=== PATIENT | male | born 1990 | race African-American/Black ===

== ENCOUNTER 2018-11-24 19:35 | Emergency (ER) | payer OTHER ==
[2018-11-24] MEDS ORDERED: ACETAMINOPHEN SOLN 325 MG/10.15 ML UDCUP PO ONE (20:16)
[2018-11-24] MEDS ORDERED: DEXAMETHASONE SOD PHOS INJ 10 MG/1 ML VIAL IV ONE (22:26)
[2018-11-24] MEDS ORDERED: KETOROLAC TROMETHAMINE INJ/PF 30 MG/1 ML SDV IV ONE (22:29)
--- NOTE | 2018-11-24 22:29 | ER Document Report ---
ED Medical Screen (RME) - General Chief Complaint: Headache Stated Complaint: HEADACHE Time Seen by Provider: 11/24/18 22:24 Mode of Arrival: Ambulatory Information source: Patient Notes: 28-year-old man foot presents to ED for complaint of headache pain with swallowing fever and body aches times 3 days. He is alert oriented respirations regular and unlabored. He states it is very painful to swallow. He is strep test is negative. He had a fever of 102.9 in the pelvic area. He has been given Tylenol before I examined him. Patient is alert oriented respirations regular and unlabored lungs are clear to auscultation. I have greeted and performed a rapid initial assessment of this patient. A comprehensive ED assessment and evaluation of the patient, analysis of test results and completion of medical decision making process will be conducted by an additional ED providers. TRAVEL OUTSIDE OF THE [place] IN LAST 30 DAYS: No - Related Data Allergies/Adverse Reactions: No Known Allergies Allergy (Unverified 11/24/18 22:24) Past Medical History Renal/ Medical History: Denies: Hx Peritoneal Dialysis Physical Exam - Vital signs Vitals: Temp Pulse Resp BP Pulse Ox 102.9 F H 88 16 129/68 H 97 11/24/18 20:05 11/24/18 20:05 11/24/18 20:05 11/24/18 20:05 11/24/18 20:05 Course - Vital Signs Vital signs: Temp Pulse Resp BP Pulse Ox 103.1 F H 88 16 129/68 H 97 11/24/18 22:00 11/24/18 20:05 11/24/18 20:05 11/24/18 20:05 11/24/18 20:05
[2018-11-24] MEDS ORDERED: NORMAL SALINE 1000 ML 1,000 ML IV ONE (23:15)
[2018-11-24 23:16] LABS: ABSOLUTE LYMPHOCYTES (AUTO) 1.3 10^3/uL (0.5-4.7); ABSOLUTE MONOCYTES (AUTO) 1.6 10^3/uL (0.1-1.4); ABSOLUTE NEUT (AUTO) 6.5 10^3/uL (1.7-8.2); BASOPHILS % (AUTO) 0.3 % (0-2); EOSINOPHILS % (AUTO) 0.1 % (0-6); HEMOGLOBIN 14.8 g/dL (13.5-17.0); LYMPHOCYTES % (AUTO) 13.6 % (13-45); MEAN CORPUSCULAR HEMOGLOBIN 28.7 pg (27.0-33.4); MEAN CORPUSCULAR HGB CONC 36.1 g/dL (32.0-36.0); MEAN CORPUSCULAR VOLUME 79 fl (80-97); MONOCYTES % (AUTO) 17.2 % (3-13); PLATELET COUNT 136 10^3/uL (150-450); RED BLOOD COUNT 5.17 10^6/uL (4.35-5.55); RED CELL DISTRIBUTION WIDTH 12.7 % (11.5-14.0); SEGMENTED NEUTROPHILS % (AUTO) 68.8 % (42-78); TOTAL CELLS COUNTED % (AUTO) 100 %; WHITE BLOOD COUNT 9.5 10^3/uL (4.0-10.5)
[2018-11-24 23:23] LABS: ALANINE AMINOTRANSFERASE 31 U/L (21-72); ALBUMIN 4.2 g/dL (3.5-5.0); ALKALINE PHOSPHATASE 62 U/L (38-126); ANION GAP 13 (5-19); ASPARTATE AMINO TRANSFERASE 44 U/L (17-59); BILIRUBIN,DIRECT 0.3 mg/dL (0.0-0.4); BILIRUBIN,TOTAL 0.7 mg/dL (0.2-1.3); BLOOD UREA NITROGEN 13 mg/dL (7-20); CALCIUM 9.3 mg/dL (8.4-10.2); CARBON DIOXIDE 25 mmol/L (22-30); CHLORIDE 97 mmol/L (98-107); GLUCOSE 138 mg/dL (75-110); POTASSIUM 3.7 mmol/L (3.6-5.0); SODIUM 134.7 mmol/L (137-145); TOTAL PROTEIN 7.7 g/dL (6.3-8.2)
--- NOTE | 2018-11-24 23:32 | ER Document Report ---
ED General - General Chief Complaint: Headache Stated Complaint: HEADACHE Time Seen by Provider: 11/24/18 22:24 Primary Care Provider: JAMES COLLAZO MD [ACTIVE STAFF] - Follow up in 3-5 days Mode of Arrival: Ambulatory Notes: Patient is a 28-year-old male that presents to the emergency department for chief complaint of sore throat, headache and fever. Patient reports he started having headache and sore throat for the past 3 days, and it is not getting much better. He states is not the worst headache he has had, but it is intense. He has had some chills and sweats and generalized body aches and joint aching. He denies noting any blurred vision, change in vision, numbness, weakness or tingling. Denies any sick contacts he is aware of. He reports having a subjective fever, did not take his temperature at home. He denies having any nausea, vomiting, abdominal pain, dysuria or hematuria. Past Medical History: Denies chronic medical conditions Past Surgical History: Denies surgical history Social History: Denies tobacco, alcohol or drug use. Family History: Reviewed and noncontributory for presenting illness Allergies: Reviewed, see documented allergy list. REVIEW OF SYSTEMS: Other than noted above, the 12 point review of systems was reviewed with the patient and were negative, all pertinent findings are included in the HPI. PHYSICAL EXAMINATION: Vital signs reviewed, nursing noted reviewed. GENERAL: Well-appearing, well-nourished and in no acute distress. HEAD: Atraumatic, normocephalic. EYES: Eyes appear normal, extraocular movements intact, sclera anicteric, conjunctiva are normal. ENT: nares patent, oropharynx, noted to have exudates, and tonsillar enlargement, moist mucous membranes. NECK: Normal range of motion, bilateral tender cervical lymphadenopathy with palpation. LUNGS: Breath sounds clear to auscultation bilaterally and equal. No wheezes rales or rhonchi. HEART: Regular rate and rhythm without murmurs ABDOMEN: Soft, nontender, normoactive bowel sounds. No rebound, guarding, or rigidity. No masses appreciated. No organomegaly. EXTREMITIES: Nontender, good range of motion, no pitting or edema. NEUROLOGICAL: No focal neurological deficits. Moves all extremities spontaneously Motor and sensory grossly intact on exam. PSYCH: Normal mood, normal affect. SKIN: Warm, Dry, normal turgor, no rashes or lesions noted on exposed skin TRAVEL OUTSIDE OF THE [place] IN LAST 30 DAYS: No - Related Data Allergies/Adverse Reactions: No Known Allergies Allergy (Unverified 11/24/18 22:24) Past Medical History - General Information source: Patient - Social History Smoking Status: Never Smoker Family History: Reviewed & Not Pertinent Patient has suicidal ideation: No Patient has homicidal ideation: No Renal/ Medical History: Denies: Hx Peritoneal Dialysis Physical Exam - Vital signs Vitals: Temp Pulse Resp BP Pulse Ox 102.9 F H 88 16 129/68 H 97 11/24/18 20:05 11/24/18 20:05 11/24/18 20:05 11/24/18 20:05 11/24/18 20:05 Course - Re-evaluation Re-evalutation: Patient seen and examined vital signs reviewed. Laboratory data and/or imaging were ordered as appropriate for the patient's presenting symptoms and complaint, with consideration of any critical or life threatening conditions that may be associated with their obtained history and exam as noted above. Patient was treated with IM Toradol, and IM Decadron Results were reviewed when available and demonstrated essentially unremarkable blood work, with the exception of positive mono's testing, strep negative. The patient was re-evaluated and was stable, headache was improved just after Tylenol Evaluation was most consistent with mononucleosis, advised taking Zofran for nausea, to maintain hydration, and Motrin for symptoms otherwise, advised to avoid any contact sports for the next several months, Results were discussed with the patient at this point, after careful consideration I feel that that patient can be discharged from the emergency department, the patient was educated treatments and reasons to return to the emergency department based on their presumed diagnosis as noted above, they were advised to followup with a primary care physician in 2-3 days. Patient was agreeable to plan of care. *Note is created using voice recognition software and may contain spelling, syntax or grammatical errors. Laboratory 11/24/18 11/24/18 11/24/18 21:55 22:35 22:35 WBC 9.5 RBC 5.17 Hgb 14.8 Hct 41.0 MCV 79 L MCH 28.7 MCHC 36.1 H RDW 12.7 Plt Count 136 L Seg Neutrophils % 68.8 Lymphocytes % 13.6 Monocytes % 17.2 H Eosinophils % 0.1 Basophils % 0.3 Absolute Neutrophils 6.5 Absolute Lymphocytes 1.3 Absolute Monocytes 1.6 H Absolute Eosinophils 0.0 Absolute Basophils 0.0 Sodium 134.7 L Potassium 3.7 Chloride 97 L Carbon Dioxide 25 Anion Gap 13 BUN 13 Creatinine 1.08 Est GFR ( Amer) > 60 Est GFR (Non-Af Amer) > 60 Glucose 138 H Calcium 9.3 Total Bilirubin 0.7 Direct Bilirubin 0.3 Neonat Total Bilirubin Not Reportable Neonat Direct Bilirubin Not Reportable Neonat Indirect Bili Not Reportable AST 44 ALT 31 Alkaline Phosphatase 62 Total Protein 7.7 Albumin 4.2 Urine Color Urine Appearance Urine pH Ur Specific [place] Urine Protein Urine Glucose (UA) Urine Ketones Urine Blood Urine Nitrite Urine Bilirubin Urine Urobilinogen Ur Leukocyte Esterase Urine WBC (Auto) Urine RBC (Auto) Squamous Epi Cells Auto Urine Mucus (Auto) Urine Ascorbic Acid Monotest Group A Strep Rapid NEGATIVE 11/24/18 11/24/18 22:35 22:35 WBC RBC Hgb Hct MCV MCH MCHC RDW Plt Count Seg Neutrophils % Lymphocytes % Monocytes % Eosinophils % Basophils % Absolute Neutrophils Absolute Lymphocytes Absolute Monocytes Absolute Eosinophils Absolute Basophils Sodium Potassium Chloride Carbon Dioxide Anion Gap BUN Creatinine Est GFR ( Amer) Est GFR (Non-Af Amer) Glucose Calcium Total Bilirubin Direct Bilirubin Neonat Total Bilirubin Neonat Direct Bilirubin Neonat Indirect Bili AST ALT Alkaline Phosphatase Total Protein Albumin Urine Color DELIA Urine Appearance SLIGHTLY-CLOUDY Urine pH 5.0 Ur Specific [place] 1.031 Urine Protein 100 H Urine Glucose (UA) NEGATIVE Urine Ketones TRACE H Urine Blood NEGATIVE Urine Nitrite NEGATIVE Urine Bilirubin NEGATIVE Urine Urobilinogen 4.0 H Ur Leukocyte Esterase NEGATIVE Urine WBC (Auto) 3 Urine RBC (Auto) 0 Squamous Epi Cells Auto <1 Urine Mucus (Auto) MANY Urine Ascorbic Acid NEGATIVE Monotest POSITIVE H Group A Strep Rapid - Vital Signs Vital signs: Temp Pulse Resp BP Pulse Ox 98.6 F 61 16 110/63 99 11/25/18 00:33 11/25/18 00:33 11/25/18 00:33 11/25/18 00:33 11/25/18 00:33 - Laboratory Result Diagrams: 11/24/18 22:35 11/24/18 22:35 Laboratory results interpreted by me: 11/24/18 11/24/18 11/24/18 22:35 22:35 22:35 MCV 79 L MCHC 36.1 H Plt Count 136 L Monocytes % 17.2 H Absolute Monocytes 1.6 H Sodium 134.7 L Chloride 97 L Glucose 138 H Urine Protein Urine Ketones Urine Urobilinogen Monotest POSITIVE H 11/24/18 22:35 MCV MCHC Plt Count Monocytes % Absolute Monocytes Sodium Chloride Glucose Urine Protein 100 H Urine Ketones TRACE H Urine Urobilinogen 4.0 H Monotest Discharge - Discharge Clinical Impression: Mononucleosis Qualifiers: Infectious mononucleosis etiology: unspecified organism Infectious mononucleosis complication: without complication Qualified Code(s): B27.90 - Infectious mononucleosis, unspecified without complication Condition: Stable Disposition: HOME, SELF-CARE Instructions: Mononucleosis (OM) Additional Instructions: Please keep yourself as hydrated as possible at home, you can take the antinausea medicine as prescribed to help maintain your hydration. He will have intermittent fevers and body aches, and fatigue over the next few weeks, as this is the natural course of this condition, it is also recommended that you do not engage in any contact sports for the next 3 months, as her spleen can partially enlarged during this infection, and has an increased risk of injury, so avoid any sports, or impact activities. Prescriptions: Ibuprofen [Motrin 600 Mg Tablet] 600 mg PO TID PRN #30 tablet PRN Reason: headache Ondansetron [Zofran Odt 4 mg Tablet] 1 tab PO Q8H PRN #15 tab.rapdis PRN Reason: For Nausea/Vomiting Referrals: JAEMS COLLAZO MD [ACTIVE STAFF] - Follow up in 3-5 days
[2018-11-24 23:44] LABS: APPEARANCE,URINE SLIGHTLY-CLOUDY; BILIRUBIN,URINE NEGATIVE (NEGATIVE); COLOR,URINE AMBER; GLUCOSE, URINE NEGATIVE (NEGATIVE); KETONES,URINE TRACE mg/dL (NEGATIVE); LEUKOCYTE ESTERASE,URINE NEGATIVE (NEGATIVE); NITRITE,URINE NEGATIVE (NEGATIVE); PROTEIN,URINE 100 mg/dL (NEGATIVE); URINE SPECIFIC GRAVITY 1.031
[2018-11-25] MEDS ORDERED: DEXAMETHASONE SOD PHOS INJ 10 MG/1 ML VIAL IM ONE (00:08)
[2018-11-25] MEDS ORDERED: KETOROLAC TROMETHAMINE INJ/PF 30 MG/1 ML SDV IM ONE (00:08)
[2018-11-25 00:34] VITALS: BP 110/63
== END 2018-11-25 00:34 | disposition home or self-care (01) ==
LOC: ER 19:35
DX: B27.90 Infectious mononucleosis, unspecified without complication (principal); R51 Headache; M25.50 Pain in unspecified joint; J35.1 Hypertrophy of tonsils
CPT/HCPCS: 99284; 96372; 36415; 87070; 87880; 85025; 86308; 80053; 81001; J1885; J1100; J3490